=== PATIENT | male | born 1985 | race Two or more races ===

== ENCOUNTER 2020-11-18 13:47 | Emergency (ER) | payer BC, OTHER, SELFPAY ==
[~2020-11-18] VITALS: Ht 180.3 cm; Wt 93.8 kg
[2020-11-18] MEDS ORDERED: HYDROmorphone 1 MG/ML, 1ML INJ ONE ×2 (14:17→15:45)
[2020-11-18] MEDS ORDERED: ONDANSETRON 2MG/ML, 2ML ONE (14:18)
[2020-11-18] MEDS: HYDROmorphone 2 MG/ML, 1ML IVPush PRN ×2 (14:24→15:51)
[2020-11-18] MEDS ORDERED: ONDANSETRON 2MG/ML, 2ML IVPush ONE (14:30)
[2020-11-18] MEDS ORDERED: SODIUM CHLORIDE 0.9% 1,000 ML IV ONE (14:30)
[2020-11-18] MEDS ORDERED: SODIUM CHLORIDE FLUSH 10ML SYR IVF ONE (14:30)
[2020-11-18 14:36] LABS: BASOPHILS % (AUTO) 1 % (0-1); EOSINOPHILS % (AUTO) 1 % (1-7); LYMPHOCYTES % (AUTO) 42 % (22-44); MEAN CORPUSCULAR HGB CONC 34.6 g/dL (33.2-36.2); MEAN PLATELET VOLUME 8.7 fL (7.4-10.4); MONOCYTES % (AUTO) 7 % (2-9); NEUTROPHILS % (AUTO) 49 % (42-75); PLATELET COUNT 294 x10^3/uL (130-400); RED BLOOD COUNT 5.61 x10^6/uL (4.38-5.82); RED CELL DISTRIBUTION WIDTH 12.7 % (9.4-14.8)
[2020-11-18] MEDS ORDERED: ETAN25VI SQ (14:36)
--- NOTE | 2020-11-18 14:37 | NUR ---
BREAK RN- PIV STARTED AND BLOOD DRAWN. PT MEDICATED WITH ZOFAND AND DILAUDID. CONTINUOUS SPO2 MONITOR IN PLACE. SBAR HAND-OFF REPORT GIVEN TO [employer].
--- NOTE | 2020-11-18 14:38 | NUR ---
FIRST CONTACT WITH PATIENT, PATIENT RESTING IN [place], VSS, SPOUSE AT BEDSIDE. PATIENT'S PAIN LEVEL IS DOWN FROM A 7/10 TO A 5/10.
[2020-11-18 14:43] LABS: MD NO
[2020-11-18 14:46] LABS: ALANINE AMINOTRANSFERASE 83 U/L (12-78); ALBUMIN 4.8 g/dL (3.4-5.0); ANION GAP 7 mmol/L (5-15); CHLORIDE 106 mmol/L (98-107); CREATININE 0.88 mg/dL (0.7-1.3)
[2020-11-18 14:48] LABS: ALKALINE PHOSPHATASE 101 U/L (45-117); BILIRUBIN,TOTAL 0.5 mg/dL (0.2-1.0); TOTAL PROTEIN 8.6 g/dL (6.4-8.2)
--- NOTE | 2020-11-18 15:17 | NUR ---
PATIENT AMBULATORY WITH STEADY GAIT TO BATHROOM.
--- NOTE | 2020-11-18 15:54 | NUR ---
PATIENT C/O 5/10 ABD PAIN, PATIENT REQUESTING SMALL DOSE OF MEDICATION. PATIENT MEDICATED PER EMAR.
[2020-11-18] MEDS ORDERED: OMNIPAQUE 350 MG/ML, 100ML BOTTLE ONE (16:16)
[2020-11-18] MEDS ORDERED: MAALOX/HYOSCYAMINE/LIDOCAINE 45 ML BTL ONE (16:47)
[2020-11-18] MEDS ORDERED: MAALOX/HYOSCYAMINE/LIDOCAINE 45 ML BTL PO ONE (17:00)
[2020-11-18 17:46] VITALS: BP 120/83
--- NOTE | 2020-11-18 18:01 | NUR ---
IV removed with tip intact. Patient given discharge instructions and prescription and they have confirmed that they understand the instructions, controlled substance contract signed. Patient ambulatory with steady gait from ED with to private vehicle.
== END 2020-11-18 19:10 | disposition home or self-care (01) ==
LOC: ED 17:55
DX: R10.13 Epigastric pain (principal); M54.5 Low back pain; M06.9 Rheumatoid arthritis, unspecified
CPT/HCPCS: 36415; 74177; 76700; 80053; 83690; 85025; 96361; 96374; 96375; 96376; 99285; J1170; J2405; J7030; Q9967